=== PATIENT | female | born 1995 | race Caucasian/White ===

== ENCOUNTER 2016-07-19 03:53 | Emergency (ER) | payer SELFPAY ==
[~2016-07-19] VITALS: Ht 165.1 cm; Wt 53.1 kg
[2016-07-19 03:55] VITALS: Ht 165.1 cm; Wt 53.1 kg
--- NOTE | 2016-07-19 04:10 | NUR ---
WOUND CARE LAC TO HEAD CLEANED WITH CHLORHEXADINE AND NS
[2016-07-19] MEDS ORDERED: NO DAILY MEDS (04:16)
--- NOTE | 2016-07-19 04:20 | NUR ---
ELIMINATION UA COLLECTED AND SENT TO LAB
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
[2016-07-19] MEDS ORDERED: HYDROCODONE/APAP 5 mg/325 mg TABLET PO ONE (04:30)
[2016-07-19] MEDS ORDERED: ONDANSETRON ODT 4 MG TAB PO ONE (04:30)
--- NOTE | 2016-07-19 04:50 | NUR ---
RADIOLOGY PT TO RADIOLOGY PER WC
--- NOTE | 2016-07-19 04:55 | NUR ---
RADIOLOGY PT FROM RADIOLOGY PER WC
[2016-07-19] MEDS ORDERED: LIDOCAINE 1%/EPI 1:100,000 20ml MDV SQ ONE (05:15)
--- NOTE | 2016-07-19 05:20 | NUR ---
PROVIDER DR KELLY AT BEDSIDE TO REPAIR LAC
[2016-07-19 05:44] VITALS: BP 124/71; PULSE 98; RESP 16; TEMP 97.9; O2SAT 98
--- NOTE | 2016-07-19 05:44 | NUR ---
DISMISSAL DISMISSAL INSTRUCTIONS TO PT WITHOUT FURTHER QUESTIONS. PT LEFT DEPARTMENT WITH MOTHER
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
== END 2016-07-19 05:44 | disposition home or self-care (01) ==
LOC: ED 03:53
DX: S01.01XA Laceration without foreign body of scalp, initial encounter (principal); S06.0X0A Concussion without loss of consciousness, initial encounter; Y00.XXXA Assault by blunt object, initial encounter; Y93.89 Activity, other specified; Y92.89 Other specified places as the place of occurrence of the external cause; Y99.8 Other external cause status
CPT/HCPCS: 81025

== ENCOUNTER 2016-07-27 14:44 | Emergency (ER) | payer SELFPAY ==
[~2016-07-27] VITALS: Ht 165.1 cm; Wt 52.9 kg
[~2016-07-27 14:44] MED LIST: NO DAILY MEDS
--- OUTSIDE RECORDS SUMMARY | 2016-07-27 14:48 | XMS REPORT | Continuity of Care Document ---
Author Author [facility] Organization [facility] Address Unknown Phone Unavailable Support Name Relationship Address Phone AUGUST, BETH Julien DO Caregiver [address] [address] Unavailable JUSTIN FUNES Next Of Kin [address] [place], [place] [phone] Insurance Providers Guarantor Zheng Montelongo Address [address] [place] [address] Email DECLINED 07-19-16 Payer Self Pay Subscriber's Name Zheng Montelongo Relationship 18 Self Chief Complaint and Reason for Visit Chief Complaint Head Injury Reason for Visit Concussion Scalp laceration Problems Past Problems Medical Problem Onset Date Concussion Unknown Scalp laceration Unknown Medications Current Home Medications Medication Dose Units Route Directions Days Qty Instructions Start Date No Daily Meds 07/19/16 Social History Social History Problem Response Recorded Date/Time Onset Date Status Hx Alcohol Use Yes 07/19/2016 4:05am Not Applicable Not Applicable Query Response Start Date Stop Date Smoking Status Unknown if ever smoked Hospital Discharge Instructions No hospital discharge instructions. Plan of Care Discharge Date 07/19/16 5:44am Disposition 01 DISCHARGED HOME, SELF-CARE Condition at Discharge Improved Instructions/Education Provided Laceration (ED) Concussion (ED) Prescriptions See Medication Section Referrals YOUR PHYSICIAN Order Date: 1 Week Note: Additional Instructions/Education You have a cut on your head that has been repaired with 4 damir. Keep the wound clean and dry; follow up with your doctor for staple removal in the next 7-10 days. You may have a mild concussion. Take it easy and stop doing anything that gives you a headache. Take tylenol and/or naproxen as needed for pain. Ice may help. Follow up with your doctor for repeat evaluation and ongoing care. Care Plan and Goals Physician Care Plan Problem: Scalp lac Goal: Follow up with primary care provider Instructions: Take medications and follow care plan as discussed/written Functional Status No functional status results. Allergies, Adverse Reactions, Alerts No known allergies. Immunizations Query Response on File Recorded Date/Time Tdap Vaccine Hx UNKNOWN 07/19/16 4:15am Vital Signs Acute Vital Signs Vital Response Date/Time Temperature (Fahrenheit) 97.9 deg F (96.8 - 99.1) 07/19/2016 5:44am Temperature (Calculated Celsius) 36.87284 degrees C (36.0 - 37.3) 07/19/2016 5:44am Pulse Rate (adult) 98 bpm (60 - 100) 07/19/2016 5:44am Respiratory Rate 16 breaths/min (10 - 20) 07/19/2016 5:44am O2 Sat by Pulse Oximetry 98 % (90 - 100) 07/19/2016 5:44am Blood Pressure 124/71 mm Hg 07/19/2016 5:44am Height (Feet) 5 feet 07/19/2016 3:55am Height (Inches) 5.00 inches 07/19/2016 3:55am Weight (Kilograms) 53.100 kg 07/19/2016 3:55am Body Mass Index (BMI) 19.0 07/19/2016 3:55am Results No known relevant diagnostic tests, laboratory data and/or discharge summary. Procedures No known history of procedures. Encounters Encounter Location Arrival/Admit Date Discharge/Depart Date Attending Provider Departed Emergency Room [facility] 07/19/16 3:53am 07/19/16 5: 44am BETH KELLY DO Recent Diagnosis
[2016-07-27 14:50] VITALS: Ht 165.1 cm; Wt 52.9 kg
--- NOTE | 2016-07-27 14:58 | ERPDOC ---
Departure Disposition Decision Date: Jul 27, 2016 Disposition Decision Time: 14:56 (WILFRIDO ACEVESS Anna THRASHER) Disposition: 01 DISCHARGED HOME, SELF-CARE Impression Impression (NORIS ACEVES APRN) Impression: Primary Impression: Encounter for staple removal Severity: Mild (WILFRIDO ACEVESS Anna THRASHER) Condition: Improved Seen By: Mid-level only (NORIS ACEVES APRN) Patient Instructions: Stitches Removal (ED) Problems/Meds/Labs Reviewed?: Yes Medications reviewed and manag: Yes (WILFRIDO ACEVESS Anna THRASHER) Additional Instructions: Follow up with your PCP as needed. Follow up care ordered?: Yes Mental Status: Alert, Oriented (WILFRIDO ACEVESS Anna THRASHER) HPI General Chief Complaint: Suture Removal Stated Complaint: NEEDS DAMIR TAKEN OUT Time Seen by Provider: 14:56 Source: patient (NORIS ACEVES APRN) Time Seen by Provider: 14:56 (SHERI KOWALSKI MD) HPI Wound Recheck Initial Comments 20 YO F presents to ED for staple removal from scalp. Patient had damir placed in our ED on 07-19-16 and is unable to have them removed in PCP's office. Patient denies any pain or s/s of infection. Location: scalp (WILFRIDO ACEVESS Anna THRASHER) Allergies: Coded Allergies: No Known Allergies (Unverified , 07/19/16) Past History Past Medical History Pt denies signifigant PMH (WILFRIDO ACEVESS A WIRE COILER MACHINE OPERATOR) Surgical History Denies Surgeries (WILFRIDO ACEVESS A ANNA MARIE) Family History Family PMH: FOUND: other (noncontributory) (WILFRIDO ACEVESS Anna THRASHER) Social History Household Members: family (WILFRIDO ACEVESS Anna THRASHER) Review of Systems Constitutional Constitutional: DENIES: chills, dizziness, fever, weakness (WILFRIDO ACEVESS A WIRE COILER MACHINE OPERATOR) Eyes General: DENIES: erythema, exudate Lids/Accessories: DENIES: erythema, swelling (WILFRIDO ACEVESS A WIRE COILER MACHINE OPERATOR) ENMT Ears: DENIES: pain Sinuses: DENIES: congestion, rhinorrhea Mouth/Throat: DENIES: sore throat (WILFRIDO ACEVESS A WIRE COILER MACHINE OPERATOR) Cardiovascular Cardiac: DENIES: murmur (WILFRIDO ACEVESS A WIRE COILER MACHINE OPERATOR) Pulmonary Respiratory: DENIES: cough, dyspnea (ACEVESNORIS A WIRE COILER MACHINE OPERATOR) GI Upper Abdomen: DENIES: nausea, pain, vomiting Lower Abdomen: DENIES: diarrhea, pain (ACEVES,NORIS A WIRE COILER MACHINE OPERATOR) General: DENIES: pain (ACEVES,NORIS A WIRE COILER MACHINE OPERATOR) Musculoskeletal General: DENIES: joint pain, pain, tenderness (ACEVES,NORIS A WIRE COILER MACHINE OPERATOR) Integumentary Skin: DENIES: color change, itching, rash (ACEVES,NORIS A WIRE COILER MACHINE OPERATOR) Neurological General: DENIES: ataxia, change in strength, numbness, paralysis/paresis, weakness (ACEVES,NORIS A WIRE COILER MACHINE OPERATOR) Psychiatric Psychiatric: DENIES: anxiety, depression, nervousness (ACEVES,NORIS A WIRE COILER MACHINE OPERATOR) Exam General General Nourishment: well nourished, well developed, adult General Body Habitus: well groomed Height (Feet): 5 Height (Inches): 5.00 (ACEVES,NORIS A WIRE COILER MACHINE OPERATOR) Fastrak Wound Recheck Laceration : Location: scalp, right parietal area Size: approx. 2.5 Skin: apposed, NOT FOUND: dehiscence, erythema, exudate, swelling # of Sutures/[place] removed: 4 Post Procedure: skin apposed, NOT FOUND: bleeding, dehisced, exudate (ACEVES ,NORIS A WIRE COILER MACHINE OPERATOR) Eyes (brief) Eyes Brief: found: EOMI (ACEVES,NORIS A WIRE COILER MACHINE OPERATOR) ENMT (brief) ENMT Brief: NOT FOUND: nasal exudate, nasal swelling (ACEVES,NORIS A WIRE COILER MACHINE OPERATOR) Neck (brief) Neck Brief: FOUND: trachea midline (ACEVES,NORIS A WIRE COILER MACHINE OPERATOR) Respiratory (brief) Respiratory Brief: FOUND: clear all martinez, equal bilaterally, symmetrical ( ACEVES,NORIS A WIRE COILER MACHINE OPERATOR) Cardiovascular (brief) Cardiac Brief: FOUND: regular rate, regular rhythm (ACEVES,NORIS A WIRE COILER MACHINE OPERATOR) Musculoskeletal (brief) Musculoskeletal Brief: NOT FOUND: deformity, loss of motion (ACEVES,NORIS A WIRE COILER MACHINE OPERATOR) Integumentary (brief) Integumentary Brief: FOUND: dry, pink, warm (ACEVES,NORIS A WIRE COILER MACHINE OPERATOR) Neurologic (brief) Neurological Brief: FOUND: motor-no gross deficits, sensory-no gross deficits ( ACEVES,NORIS A WIRE COILER MACHINE OPERATOR) Neurologic RN Documented GCS Eye Opening: Verbal: Motor: Total: (ACEVES,NORIS A WIRE COILER MACHINE OPERATOR) Psychiatric (brief) Psychiatric Brief: FOUND: alert, normal affect, oriented (NORIS ACEVES APRN ) Differential Diagnoses Considering: Laceration (NORIS ACEVES APRN) NORIS ACEVES APRN Jul 27, 2016 14:58 SHERI KOWALSKI MD Jul 28, 2016 15:04
--- NOTE | 2016-07-27 15:00 | NUR ---
JOHN JOHN X4 REMOVED WITHOUT DIFFICULTY
[2016-07-27 15:02] VITALS: BP 134/80; PULSE 75; RESP 14; TEMP 98.5; O2SAT 98
--- NOTE | 2016-07-27 15:02 | NUR ---
DISMISSAL DISMISSAL INSTRUCTIONS TO PT WITHOUT FURTHER QUESTIONS. PT LEFT DEPARTMENT AMBUALTORY
== END 2016-07-27 15:02 | disposition home or self-care (01) ==
LOC: ED 14:44
DX: S01.01XD Laceration without foreign body of scalp, subsequent encounter (principal); Y00.XXXD Assault by blunt object, subsequent encounter; Y92.89 Other specified places as the place of occurrence of the external cause; Y99.8 Other external cause status